=== PATIENT | female | born 1960 | race Caucasian/White ===

== ENCOUNTER → 2019-08-27 | Outpatient (CLI) | payer OTHER ==
[~2019-08-27] MED LIST: CYAN1TAB29 PO; FLUO10TA PO; PANT40TA5 PO
[2019-08-27 15:34] LABS: BASOPHILS # (AUTO) 0.05 x10^3/uL (0-0.1); BASOPHILS % (AUTO) 1 % (0-1); EOSINOPHILS # (AUTO) 0.12 x10^3/uL (0-0.4); EOSINOPHILS % (AUTO) 2 % (1-7); LYMPHOCYTES # (AUTO) 1.55 x10^3/uL (1-3.4); LYMPHOCYTES % (AUTO) 26 % (22-44); MD NO; MEAN CORPUSCULAR HEMOGLOBIN 24.3 pg (27.0-34.8); MEAN CORPUSCULAR HGB CONC 32.3 g/dL (32.4-35.8); MEAN CORPUSCULAR VOLUME 75.2 fL (80-100); MEAN PLATELET VOLUME 9.1 fL (7.4-10.4); MONOCYTES # (AUTO) 0.43 x10^3/uL (0.2-0.8); MONOCYTES % (AUTO) 7 % (2-9); NEUTROPHILS # (AUTO) 3.79 x10^3/uL (1.8-6.8); NEUTROPHILS % (AUTO) 64 % (42-75); PLATELET COUNT 211 x10^3/uL (130-400); RED BLOOD COUNT 4.59 x10^6/uL (3.82-5.3); RED CELL DISTRIBUTION WIDTH 16.9 % (9.6-15.2)
[2019-08-27 15:39] LABS: ALANINE AMINOTRANSFERASE 76 U/L (12-78); ALBUMIN 3.7 g/dL (3.4-5.0); ANION GAP 6 mmol/L (5-15); CALCIUM 9.3 mg/dL (8.5-10.1); CHLORIDE 107 mmol/L (98-107); CREATININE 0.85 mg/dL (0.55-1.02); INTERNATIONAL NORMALIZED RATIO 0.95 (0.93-1.1); PROTHROMBIN TIME 10.1 Seconds (9.6-11.5)
[2019-08-27 15:41] LABS: ALKALINE PHOSPHATASE 103 U/L (45-117); BILIRUBIN,TOTAL 0.2 mg/dL (0.2-1.0); TOTAL PROTEIN 7.5 g/dL (6.4-8.2)
== END | disposition home or self-care (01) ==
LOC: STAR 14:15
PROVIDERS: ATTEND Specialist
DX: Z01.818 Encounter for other preprocedural examination (principal); D06.9 Carcinoma in situ of cervix, unspecified; E66.01 Morbid (severe) obesity due to excess calories; D25.9 Leiomyoma of uterus, unspecified; K44.9 Diaphragmatic hernia without obstruction or gangrene; Z68.42 Body mass index [BMI] 45.0-49.9, adult
CPT/HCPCS: 36415; 71046; 80053; 85025; 85610; 85730; 86304; 93005

== ENCOUNTER 2019-09-01 07:28 | Observation (INO) | payer OTHER ==
[~2019-09-01] VITALS: Ht 157.5 cm; Wt 119.9 kg
[~2019-09-01 07:28] MED LIST changes: +BUPIVACAINE/PF-EPI 0.25% 1:200K ONE; +INDOCYANINE GREEN 25 MG VIAL ONE
[2019-09-01] MEDS ORDERED: CHLORHEXIDINE 15 ML UDC MM STA (07:34)
[2019-09-01 07:58] VITALS: BP 139/84
[2019-09-01] MEDS: LACTATED RINGERS 1,000 ML IV SCH ×2 (08:12→21:49)
[2019-09-01] MEDS ORDERED: GABAPENTIN 300 MG CAPSULE PO ONE (08:30)
[2019-09-01] MEDS ORDERED: ACETAMINOPHEN 500 MG TABLET PO ONE (08:30)
[2019-09-01] MEDS ORDERED: CEFOTETAN PMX 2GM/50ML 50 ML IV ONE (08:30)
[2019-09-01] MEDS ORDERED: FENTANYL PF 250 MCG/5ML ONE ×3 (10:27→14:39)
[2019-09-01] MEDS ORDERED: MIDAZOLAM 1 MG/ML, 2ML ONE (10:27)
[2019-09-01] MEDS ORDERED: GLYCOPYRROLATE 0.2MG/1ML, 5ML ONE (10:28)
[2019-09-01] MEDS ORDERED: ROCURONIUM 10MG/ML,5ML ONE ×3 (10:28→15:27)
[2019-09-01] MEDS ORDERED: KETOROLAC 30 MG/1 ML ONE (10:28)
[2019-09-01] MEDS ORDERED: PROPOFOL 10 MG/ML, 20ML ONE (10:28)
[2019-09-01] MEDS ORDERED: CEFAZOLIN 1,000 MG ONE (10:28)
[2019-09-01] MEDS ORDERED: DEXAMETHASONE 4 MG/ML, 1ML ONE (10:28)
[2019-09-01] MEDS ORDERED: ONDANSETRON 2MG/ML, 2ML ONE (10:28)
[2019-09-01] MEDS ORDERED: NEOSTIGMINE 1 MG/ML, 10ML ONE (10:28)
[2019-09-01] MEDS ORDERED: LABETALOL 5MG/ML, 20ML IV PRN (12:00)
[2019-09-01] MEDS ORDERED: MEPERIDINE/PF 25MG/ML,1ML IVPush PRN (12:00)
[2019-09-01] MEDS ORDERED: HALOPERIDOL 5 MG/ML IV PRN (12:00)
[2019-09-01] MEDS ORDERED: MORPHINE SULFATE 4 MG/ML, 1ML IVPush PRN (12:00)
[2019-09-01] MEDS ORDERED: hydrALAzine 20 MG/ML, 1ML IV PRN (12:00)
[2019-09-01] MEDS ORDERED: PROMETHAZINE 25 MG/ML, 1ML IV PRN (12:00)
[2019-09-01] MEDS ORDERED: OXYcodone 5 MG/5 ML ORAL.SOL UDC PO PRN (12:00)
[2019-09-01] MEDS ORDERED: HYDROmorphone 2 MG/ML, 1ML IVPush PRN (12:00)
[2019-09-01] MEDS ORDERED: FENTANYL PF 100 MCG/2ML IV PRN (12:00)
[2019-09-01] MEDS ORDERED: CEFOTETAN PMX 2GM/50ML 50 ML ONE (13:42)
[2019-09-01] MEDS ORDERED: hydrALAzine 20 MG/ML, 1ML ONE (14:56)
[2019-09-01] MEDS ORDERED: METOPROLOL 1 MG/ML, 5ML ONE (15:03)
[2019-09-01] MEDS ORDERED: ALBUTEROL HFA 90 MCG/SPRAY ONE (16:26)
[2019-09-01] MEDS ORDERED: FENTANYL PF 100 MCG/2ML ONE (17:37)
[2019-09-01] MEDS ORDERED: OXYcodone 5 MG/5 ML ORAL.SOL UDC ONE (17:37)
[2019-09-02] MEDS ORDERED: OXYcodone/APAP 5/325MG TABLET PO PRN (00:30)
[2019-09-02 02:06] VITALS: BP 127/74
[2019-09-02 07:37] VITALS: BP 108/62
[2019-09-02 12:22] VITALS: BP 101/59
== END 2019-09-02 13:39 | disposition home or self-care (01) ==
LOC: OUT 07:28 → EDSTATUS 07:30 → 3N 19:56 → INTOOBSV 19:56
PROVIDERS: ADMIT Specialist; ATTEND Specialist
DX: C53.0 Malignant neoplasm of endocervix (principal); D25.9 Leiomyoma of uterus, unspecified; E66.01 Morbid (severe) obesity due to excess calories; E78.5 Hyperlipidemia, unspecified; K21.9 Gastro-esophageal reflux disease without esophagitis; G47.33 Obstructive sleep apnea (adult) (pediatric); Z95.0 Presence of cardiac pacemaker; Z79.899 Other long term (current) drug therapy
CPT/HCPCS: 36415; 58548; 74018; 86850; 86900; 86923; 88305; 88309; 88333; 88342; G0378; J0360; J0690; J1100; J1885; J2250; J2405; J2704; J2710; J3010; J3490; J7120; S2900